=== PATIENT | male | born 1965 | race Caucasian/White ===

== ENCOUNTER 2019-03-06 10:51 | Emergency (ER) | payer BC ==
[2019-03-06 10:57] VITALS: BP 131/85; PULSE 70
[2019-03-06] MEDS ORDERED: Sodium Chloride 0.9% 1,000 ML IV ONE (11:47)
[2019-03-06] MEDS ORDERED: Sodium Chloride 0.9% 10 ML Syringe FLUSH PRN (11:47)
--- NOTE | 2019-03-06 11:53 | EDM.PDOC ---
ED HPI GENERAL MEDICAL PROBLEM - General Chief Complaint: Neuro Symptoms/Deficits Stated Complaint: DIZZINESS/L SIDE FACIAL DROOP Time Seen by Provider: 03/06/19 11:31 Source of Information: Reports: Patient History Limitations: Reports: No Limitations - History of Present Illness INITIAL COMMENTS - FREE TEXT/NARRATIVE: Patient is a 53-year-old male with concerns of intermittent gait abnormalities. He states with walking at times he'll feels off balance and has to catch himself against the wall. He denies any sensation of the room spinning. This has been going on for the past 3 months. He is under chronic pain management for neck and back pain. He has in total had 12 surgeries to his back and also to to his cervical spine. He was previously on morphine, oxycodone, and Valium. They changed to fentanyl patch and continues to take oxycodone and Valium. states she noticed his left eye was little more droopy over the past 1.5 weeks. This has resolved. There is no facial droop associated with this. Patient has had at no time complained of any weakness to his upper or lower extremities, foot drop, slurred speech, and tongue deviation, or vision loss. He does have a history of cervical fusion 2 and notes due to this wrist surgeries has some difficulty with swallowing at times. He has lost approximately 60 pounds over the last 4 months due to stress at work. They have not changed his medication dosages with the weight loss. Currently denies any headache, vision changes, chest pain, short of breath, fever, cough, abdominal pain, nausea vomiting, diarrhea, bloody stools, dark tarry stools, dysuria, increased edema to lower extremities, PND, orthopnea, and/or any additional complaints. Patient's been evaluated at the [facility] 3 weeks ago with blood work obtained with no concerning findings. Patient does smoke. Has a history of hypercholesteremia as well as seasonal allergies. - Related Data Allergies Allergy/AdvReac Type Severity Reaction Status Date / Time No Known Allergies Allergy Verified 03/06/19 10:57 Home Meds: Home Meds Fluticasone Propionate [Flonase] 1 spray NASBOTH ASDIRECTED 01/19/15 [History] Pill For Enlarged Prostate 0 mg PO DAILY 01/19/15 [History] Simvastatin [Zocor] 0 mg PO DAILY 01/19/15 [History] oxyCODONE ER [OxyCONTIN] 30 mg PO BEDTIME PRN 01/19/15 [History] Diazepam [Valium] 10 mg PO BEDTIME 03/06/19 [History] fentaNYL [Fentanyl] 1 each TD ASDIRECTED 03/06/19 [History] Past Medical History Cardiovascular History: Reports: High Cholesterol Musculoskeletal History: Reports: Back Pain, Chronic Other Dermatologic History: "skin cancer of nose" - Past Surgical History Other Neurological Surgeries/Procedures: "multiple back surgeries". reports last surgery was last spring with anterior-posterior fusion. previous surgery for removal of hardware for infection Social & Family History - Tobacco Use Smoking Status *Q: Current Every Day Smoker Years of Tobacco use: 45 Packs/Tins Daily: 0.5 - Recreational Drug Use Recreational Drug Use: No ED ROS GENERAL - Review of Systems Review Of Systems: See Below Constitutional: Reports: Decreased Appetite. Denies: Fever, Chills, Malaise, Weakness, Fatigue HEENT: Reports: Vertigo. Denies: Ear Discharge, Ear Pain, Eye Discharge, Eye Pain, Hearing Loss, Rhinitis, Sinus Problem, Throat Pain, Throat Swelling, Vision Change Respiratory: Denies: Shortness of Breath, Wheezing, Pleuritic Chest Pain, Cough , Sputum, Hemoptysis Cardiovascular: Reports: Lightheadedness. Denies: Chest Pain, Blood Pressure Problem, Claudication, Dyspnea on Exertion, Edema, Orthopnea, Palpitations, PND , Syncope GI/Abdominal: Reports: Decreased Appetite, Difficulty Swallowing. Denies: Abdominal Pain, Anorexia, Black Stool, Bloody Stool, Constipation, Diarrhea, Distension, Flatus, Hematemesis, Hematochezia, Melena, Nausea, Vomiting : Reports: No Symptoms Musculoskeletal: Reports: Neck Pain (Chronic no change), Back Pain (Chronic no change) Skin: Reports: No Symptoms Neurological: Reports: No Symptoms, Dizziness (Intermittent), Difficulty Walking (Intermittent balance issues very infrequent). Denies: Confusion, Headache, Numbness, Paresthesia, Pre-Existing Deficit, Seizure, Syncope, Tingling, Tremors, Trouble Speaking, Weakness, Change in Speech, Gait Disturbance Psychiatric: Reports: No Symptoms ED EXAM, NEURO - Physical Exam Exam: See Below Exam Limited By: No Limitations General Appearance: Alert, WD/WN, No Apparent Distress Eye Exam: Bilateral Eye: EOMI, Normal Inspection, Nystagmus (None noted), PERRL , Vision Changes (None stated) Ears: Normal External Exam, Normal Canal, Hearing Grossly Normal, Normal TMs Nose: Normal Inspection, Normal Mucosa, No Blood Throat/Mouth: Normal Inspection, Normal Oropharynx, Normal Voice, No Airway Compromise, Other (No tongue deviation) Head Exam: Atraumatic, Normocephalic Neck: Normal Inspection, Supple, Non-Tender, Full Range of Motion. No: Carotid Bruit, Lymphadenopathy (L), Lymphadenopathy (R) Respiratory/Chest: No Respiratory Distress, Lungs Clear, Normal Breath Sounds, No Accessory Muscle Use, Chest Non-Tender Cardiovascular: Normal Peripheral Pulses, Regular Rate, Rhythm, No Murmur GI/Abdominal: Normal Bowel Sounds, Soft, Non-Tender, No Organomegaly, No Distention Neurological: Alert, Normal Mood/Affect, Normal Dorsiflexion, CN II-XII Intact, Normal Plantar Flexion, Normal Gait, No Motor/Sensory Deficits, Oriented x 3, Other (No facial droop, slurred speech, tongue deviation, weakness discrepancy as to the upper and lower extremities, sensory motor deficits, or any other concerning findings. Finger-nose, rapid alternating movements are intact.) Back Exam: Normal Inspection Extremities: Normal Inspection, Normal Range of Motion, Non-Tender, No Pedal Edema, Normal Capillary Refill Psychiatric: Normal Affect, Normal Mood Skin Exam: Warm, Dry, Intact, Normal Color, No Rash Course - Vital Signs Last Recorded V/S: Last Vital Signs Temp 97.8 F 03/06/19 10:55 Pulse 70 03/06/19 10:55 Resp 16 03/06/19 10:55 BP 131/85 03/06/19 10:55 Pulse Ox 99 03/06/19 10:55 - Orders/Labs/Meds Labs: Laboratory Tests 03/06/19 03/06/19 Range/Units 12:00 12:00 WBC 11.18 H (4.23-9.07) K/mm3 RBC 5.08 (4.63-6.08) M/mm3 Hgb 16.2 (13.7-17.5) gm/L Hct 47.7 (40.1-51.0) % MCV 93.9 H (79.0-92.2) fl MCH 31.9 (25.7-32.2) pg MCHC 34.0 (32.2-35.5) g/dl RDW Std Deviation 46.8 H (35.1-43.9) fL Plt Count 297 (163-337) K/mm3 MPV 9.3 L (9.4-12.3) fl Neutrophils % (Manual) 59 (40-60) % Band Neutrophils % 1 (0-10) % Lymphocytes % (Manual) 30 (20-40) % Atypical Lymphs % 0 % Monocytes % (Manual) 8 (2-10) % Eosinophils % (Manual) 2 (0.8-7.0) % Basophils % (Manual) 0 L (0.2-1.2) Platelet Estimate Adequate RBC Morph Comment Normal Sodium 140 (136-145) mEq/L Potassium 3.6 (3.5-5.1) mEq/L Chloride 105 (98-107) mEq/L Carbon Dioxide 29 (21-32) mEq/L Anion Gap 9.6 (5-15) BUN 14 (7-18) mg/dL Creatinine 1.0 (0.7-1.3) mg/dL Est Cr Clr Drug Dosing 110.62 mL/min Estimated GFR (MDRD) > 60 (>60) mL/min BUN/Creatinine Ratio 14.0 (14-18) Glucose 96 (74-106) mg/dL Calcium 9.6 (8.5-10.1) mg/dL Total Bilirubin 0.4 (0.2-1.0) mg/dL AST 17 (15-37) U/L ALT 33 (16-63) U/L Alkaline Phosphatase 94 (46-116) U/L Troponin I < 0.017 (0.00-0.056) ng/mL Total Protein 7.4 (6.4-8.2) g/dl Albumin 3.8 (3.4-5.0) g/dl Globulin 3.6 gm/dL Albumin/Globulin Ratio 1.1 (1-2) TSH 3rd Generation 1.430 (0.358-3.74) uIU/mL Meds: Medications Discontinued Medications Generic Name Dose Route Start Last Admin Trade Name Freq PRN Reason Stop Dose Admin Sodium Chloride 1,000 mls @ 250 mls/hr 03/06/19 11:47 03/06/19 12:01 Normal Saline IV 03/06/19 15:46 250 mls/hr ONETIME ONE Administration Sodium Chloride 10 ml 03/06/19 11:47 03/06/19 12:01 Saline Flush FLUSH 10 ml ASDIRECTED PRN Administration Keep Vein Open - Re-Assessments/Exams Free Text/Narrative Re-Assessment/Exam: On exam patient's vital signs are stable. He has no facial droop, slurred speech , tongue deviation, weakness discrepancy to the upper and lower extremities. Finger-nose intact, Romberg intact, and gait is normal. He has no drooping to the eye. Patient is concerned about this intermittent sensation of feeling off balance. This has been going on for the past few months. He suspects maybe 3 months. This is when they changed his chronic pain med to fentanyl patch. They discontinued his morphine tabs. He continues take Valium and oxycodone. Unclear if any worsening symptoms/onset related with application of new patch. states she noticed his left eye was little more droopy over the past 1.5 weeks. This has resolved. There is no facial droop associated with this. Patient has had at no time complained of any weakness to his upper or lower extremities, foot drop, slurred speech, and deviation, or vision loss. He does have a history of cervical fusion 2 and notes due to this wrist surgeries has some difficulty with swallowing at times. He has lost approximately 60 pounds over the last 4 months due to stress at work. They have not changed his medication dosages with the weight loss. Currently denies any headache, vision changes, chest pain, shortness of breath, fever, cough, abdominal pain, nausea vomiting, diarrhea, bloody stools, dark tarry stools, dysuria, increased edema to lower extremities, PND, orthopnea, and/or any additional complaints. IV will be established with an S2 50 mL/h. Initial labs and studies will include : CBC, chem 14, troponin, TSH, UA, head CT without contrast, orthostatic vital signs, and EKG. EKG: Sinus rhythm at a rate of [address] head impression: Nothing acute is appreciated on noncontrast head CT exam. 03/06/19 12:58 Labs reviewed: White blood cell count 11.18, hemoglobin normal at 16.2, platelet count 297, chem 14 essentially normal. Troponin within normal limits. TSH within normal limits. Orthostatic vital signs have not been obtained yet. Orthostatic vital signs have not been obtained. Patient is sitting upright in the bed and has no symptoms. I have discussed the lab results, EKG, and CT head results. I will have patient follow up with primary care provider for further evaluation and testing in the next 3-5 days. Echocardiogram and maybe MRI may be obtained. I do not believe patient's having TIA-like symptoms. I think this is all related to his recent weight loss due to stress and the addition of fentanyl patch and continuing taking Valium and oxycodone. Patient is aware of this and also agrees. Return precautions were discussed with the patient. He had no further questions or concerns and agreed with plan. Departure - Departure Time of Disposition: 13:51 Disposition: Home, Self-Care 01 Condition: Good Clinical Impression: Abnormality of gait, Narcotic dependence, Episode of dizziness Chronic pain Qualifiers: Chronic pain type: other chronic pain Qualified Code(s): G89.29 - Other chronic pain - Discharge Information Instructions: Opioid Pain Medicine Information, Dizziness, [id number] Referrals: PCP,Not In Area [Primary Care Provider] - Forms: ED Department Discharge, ED Return to Work/School Form Additional Instructions: As discussed EKG, lab work, and head CT were essentially normal. I have elected to place you on a 48 hour Holter monitor to evaluate for any abnormalities with your heart rhythm. Please see your PCP in the next 3-5 days for reevaluation. In addition I do believe this is more likely related to the addition of fentanyl patch for pain management and continuation of valium and also Percocet. I think symptoms have compounded with your recent weight loss due to your stress. I do believe further evaluation for stress is appropriate and PCP can facilitate this. Please push the fluids. Eat a balanced meals. Return to the ED for any new or worsening symptoms.
--- NOTE | 2019-03-06 12:44 | CT ---
Head CT Technique: Multiple axial sections through the brain were obtained. Intravenous contrast was not utilized. Comparison: No prior intracranial imaging is available. Findings: Ventricles along with basal cisterns and sulci over the convexities are within normal limits for the patient's age. No abnormal parenchymal densities are seen. No evidence of intracranial hemorrhage. No midline shift or mass effect is seen. Bone window settings were reviewed which show the visualized mastoid and paranasal sinuses to appear clear. No acute calvarial abnormality is appreciated. Impression: 1. Nothing acute is appreciated on noncontrast head CT exam. Diagnostic code #1
== END 2019-03-06 14:09 | disposition home or self-care (01) ==
LOC: JD.ED 10:51
DX: R26.9 Unspecified abnormalities of gait and mobility (principal); R42 Dizziness and giddiness; F11.20 Opioid dependence, uncomplicated; M54.2 Cervicalgia; M54.9 Dorsalgia, unspecified; E78.00 Pure hypercholesterolemia, unspecified; F17.210 Nicotine dependence, cigarettes, uncomplicated; Z79.899 Other long term (current) drug therapy
CPT/HCPCS: 36415; 70450; 80053; 84443; 84484; 85007; 85027; 93005; 93225; 93226; 96360; 99284; J7040; 93010

== ENCOUNTER 2019-07-03 10:51 | Emergency (ER) | payer BC ==
[2019-07-03 11:30] VITALS: BP 114/79; PULSE 75
--- NOTE | 2019-07-03 11:56 | EDM.PDOC ---
ED HPI GENERAL MEDICAL PROBLEM - General Chief Complaint: Upper Extremity Injury/Pain Stated Complaint: RIGHT SHOULDER PAIN Time Seen by Provider: 07/03/19 11:25 Source of Information: Reports: Patient, RN Notes Reviewed History Limitations: Reports: No Limitations - History of Present Illness INITIAL COMMENTS - FREE TEXT/NARRATIVE: Patient is a 54-year-old male who presents to the ED for evaluation of right shoulder pain. He notes that on , 06/29/2019, he was lifting something heavy, when he heard and felt a pop in his right shoulder, he states he felt immediate pain after this. Patient notes that his pain in his upper arm is more of a stabbing sharp type pain in nature. He denies any numbness or tingling distal to the injury. He states that the pain feels similar to when he tore his rotator cuff in his left shoulder. Patient notes no prior deficit to the right shoulder. He does state that he has a pain doctor in [place] and he is on a pain contract. He states that the pain in the right shoulder does shoot up to the neck at times, he has not sought treatment for evaluation for this injury. He notes that he has seen Danitza Alvarez in the [facility] (formerly [facility] for a primary care provider. As far as his pain contract goes he is on 100 mcg fentanyl patch, 15 mg oxycodone, and takes Valium for sleep. He states that this pain medication combination does not really help much for the pain, he also states he is been icing the shoulder for pain relief. Treatments [employer]: Reports: Other (see below) Other Treatments [employer]: pain medcation - see triage note Right Shoulder Pain Score (Numeric/FACES): 9 - Related Data Allergies Allergy/AdvReac Type Severity Reaction Status Date / Time No Known Allergies Allergy Verified 07/03/19 11:30 Home Meds: Home Meds oxyCODONE ER [OxyCONTIN] 15 mg PO Q4HR PRN 01/19/15 [History] Diazepam [Valium] 10 mg PO BID PRN 03/06/19 [History] fentaNYL [Fentanyl] 100 mcg TD ASDIRECTED 03/06/19 [History] atorvaSTATin [Lipitor] 10 mg PO DAILY 07/03/19 [History] Past Medical History Cardiovascular History: Reports: High Cholesterol Musculoskeletal History: Reports: Back Pain, Chronic Other Dermatologic History: "skin cancer of nose" - Past Surgical History Other Neurological Surgeries/Procedures: "multiple back surgeries". reports last surgery was last spring with anterior-posterior fusion. previous surgery for removal of hardware for infection. 10 failed back surgeries, 2 failed neck surgeries Social & Family History - Tobacco Use Smoking Status *Q: Current Every Day Smoker Years of Tobacco use: 40 Packs/Tins Daily: 0.1 - Caffeine Use Caffeine Use: Reports: Coffee - Recreational Drug Use Recreational Drug Use: No Review of Systems - Review of Systems Review Of Systems: Comprehensive ROS is negative, except as noted in HPI. Musculoskeletal: Reports: Shoulder Pain (R shoulder pain). Denies: Joint Swelling Neurological: Denies: Numbness, Tingling ED EXAM, GENERAL - Physical Exam Exam: See Below Exam Limited By: No Limitations General Appearance: Alert, WD/WN, No Apparent Distress Eye Exam: Bilateral Eye: EOMI, Normal Inspection, PERRL Throat/Mouth: Normal Inspection, Normal Lips, Normal Teeth, Normal Gums, Normal Oropharynx, Normal Voice, No Airway Compromise Head: Atraumatic, Normocephalic Neck: Normal Inspection Respiratory/Chest: No Respiratory Distress, Lungs Clear, Normal Breath Sounds, No Accessory Muscle Use, Chest Non-Tender Cardiovascular: Normal Peripheral Pulses, Regular Rate, Rhythm, No Murmur Peripheral Pulses: 3+: Radial (L), Radial (R) GI/Abdominal: Normal Bowel Sounds, Soft, Non-Tender, No Distention, No Mass Extremities: Normal Inspection, Normal Capillary Refill, Limited Range of Motion (R shoulder: has about half ROM in all movements d/t pain.). No: Joint Swelling Neurological: Alert, Oriented, Normal Cognition, No Motor/Sensory Deficits Psychiatric: Normal Affect, Normal Mood Skin Exam: Warm, Dry, Intact, Normal Color, No Rash Course - Vital Signs Last Recorded V/S: Last Vital Signs Temp 98.6 F 07/03/19 11:24 Pulse 75 07/03/19 11:24 Resp 18 07/03/19 11:24 BP 114/79 07/03/19 11:24 Pulse Ox 98 07/03/19 11:24 - Orders/Labs/Meds Orders: Active Orders 24 hr Category Date Time Status Shoulder Comp Rt [CR] Stat Exams 07/03/19 11:45 Taken - Re-Assessments/Exams Free Text/Narrative Re-Assessment/Exam: 07/03/19 11:52 Patient presents to the ED for evaluation of a right shoulder injury. I will order a shoulder x-ray to evaluate for any bony abnormality that may have happened while he was lifting the heavy object, and provide the patient with an outpatient MRI order so he can follow-up with his regular doctor for further management. At this time he was not requesting anything for pain medication, he states he has everything at home, he was wanting to be evaluated for Imaging purposes. 07/03/19 12:14 X-ray is done, and demonstrates no focal bony abnormalities or acute fractures. This was read by myself and Dr. Huynh. Official radiology read is pending however. At this time, I will send the patient home with the outpatient MRI ordered and have him follow general conservative management. Departure - Departure Time of Disposition: 12:15 Disposition: Home, Self-Care 01 Condition: Fair Clinical Impression: Right shoulder pain Qualifiers: Chronicity: acute Qualified Code(s): M25.511 - Pain in right shoulder - Discharge Information *PRESCRIPTION DRUG MONITORING PROGRAM REVIEWED*: No *COPY OF PRESCRIPTION DRUG MONITORING REPORT IN PATIENT JOVANNY: No Instructions: Shoulder Pain, [id number] Referrals: PCP,None [Primary Care Provider] - Forms: ED Department Discharge Additional Instructions: You have been evaluated in the ED for your Right shoulder pain. Your x-ray demonstrated no fracture or acute bony abnormality of the right shoulder. Please use ice/heat as tolerated to the affected area. Please try to elevate the affected area to relieve swelling. You may take Tylenol 500 mg or ibuprofen 600mg q6 hrs for pain relief. Please do so until you have a tolerable level of pain with activity. Do not exceed 4000mg Tylenol or 3200mg ibuprofen in a 24 hour time period. Recommend you try taking some ibuprofen even in combination with the other medications you have been taking to help relieve inflammation of the shoulder. You were given an outpatient order for an MRI for further evaluation of your right shoulder. Our radiology department will call to schedule you with this appointment. If you have not heard from them in 48 hours, recommend you call [phone] and ask for radiology. You will need to follow-up with your primary care provider for results of this MRI. Please try to schedule an appointment within 1 week of your MRI with your primary care provider for follow -up. Please return to ED if your symptoms should change or worsen. Sepsis Event Note - Evaluation Sepsis Screening Result: No Definite Risk - Focused Exam Vital Signs: Vital Signs Temp Pulse Resp BP Pulse Ox 07/03/19 11:24 98.6 F 75 18 114/79 98 Date Exam was Performed: 07/03/19 Time Exam was Performed: 12:15 - My Orders Last 24 Hours: My Active Orders 07/03/19 11:45 Shoulder Comp Rt [CR] Stat - Assessment/Plan Last 24 Hours: My Active Orders 07/03/19 11:45 Shoulder Comp Rt [CR] Stat
--- NOTE | 2019-07-03 13:03 | CR ---
Right shoulder: Three views of the right shoulder were obtained. Comparison: No prior right shoulder imaging. Slight degenerative change is noted within the acromioclavicular joint. Glenohumeral joint is normal. No abnormal soft tissue calcifications are seen, no old fracture or other bony abnormality is noted. Azygos lobe is noted within the right upper lung which is felt to be a incidental note. Impression: 1. Slight degenerative change within the acromioclavicular joint. 2. Right shoulder study is otherwise unremarkable. Diagnostic code #2 This report was dictated in [place] Standard Time
== END 2019-07-03 12:33 | disposition home or self-care (01) ==
LOC: JD.ED 10:51
DX: M25.511 Pain in right shoulder (principal); F17.210 Nicotine dependence, cigarettes, uncomplicated; E78.00 Pure hypercholesterolemia, unspecified; Z79.899 Other long term (current) drug therapy; X50.0XXA Overexertion from strenuous movement or load, initial encounter
CPT/HCPCS: 73030-26-RT; 73030-RT; 99282; 99283-25

== ENCOUNTER 2019-12-30 13:08 | Emergency (ER) | payer BC ==
[2019-12-30 13:19] VITALS: BP 127/73; PULSE 50
[2019-12-30] MEDS ORDERED: Sodium Chloride 0.9% 10 ML Syringe FLUSH PRN (14:03)
[2019-12-30] MEDS ORDERED: Ondansetron 4 MG/2 ML SDV IVPUSH ONE (14:03)
[2019-12-30] MEDS ORDERED: Famotidine 20 MG/2 ML SDV IVPUSH ONE (14:03)
--- NOTE | 2019-12-30 14:05 | EDM.PDOC ---
ED HPI GENERAL MEDICAL PROBLEM - General Chief Complaint: Gastrointestinal Problem Stated Complaint: VOMITING GREEN BILE FOR 12 HOURS Time Seen by Provider: 12/30/19 13:19 Source of Information: Reports: Patient, Family (), RN Notes Reviewed - History of Present Illness INITIAL COMMENTS - FREE TEXT/NARRATIVE: 54 yr old male has not felt well for 2 weeks, generalized weakness, dizziness. Onset of diarrhea and vomiting last evening. Continues to feel more ill today. Epigastric Pain Score (Numeric/FACES): 8 - Related Data Allergies Allergy/AdvReac Type Severity Reaction Status Date / Time No Known Allergies Allergy Verified 12/30/19 13:19 Home Meds: Home Meds oxyCODONE ER [OxyCONTIN] 20 mg PO Q4HR PRN 01/19/15 [History] diazePAM [Valium] 10 mg PO BID PRN 03/06/19 [History] atorvaSTATin [Lipitor] 10 mg PO DAILY 07/03/19 [History] Morphine [MS Contin] 100 mg PO ASDIRECTED 12/30/19 [History] Ondansetron [Zofran ODT] 4 mg PO Q8HR PRN #7 tab.dis 12/30/19 [Rx] Past Medical History Cardiovascular History: Reports: High Cholesterol Musculoskeletal History: Reports: Back Pain, Chronic Other Dermatologic History: "skin cancer of nose" - Past Surgical History Other Neurological Surgeries/Procedures: "multiple back surgeries". reports last surgery was last spring with anterior-posterior fusion. previous surgery for removal of hardware for infection. 10 failed back surgeries, 2 failed neck surgeries Social & Family History - Tobacco Use Smoking Status *Q: Current Every Day Smoker Years of Tobacco use: 20 Packs/Tins Daily: 0.5 - Caffeine Use Caffeine Use: Reports: None - Recreational Drug Use Recreational Drug Use: No ED ROS GENERAL - Review of Systems Review Of Systems: See Below Constitutional: Denies: Fever, Chills HEENT: Reports: No Symptoms Respiratory: Denies: Shortness of Breath, Cough Cardiovascular: Denies: Chest Pain GI/Abdominal: Reports: Abdominal Pain, Diarrhea, Nausea, Vomiting. Denies: Hematochezia, Melena Musculoskeletal: Denies: Back Pain Neurological: Reports: Dizziness ED EXAM, GI/ABD - Physical Exam Exam: See Below General Appearance: Alert, Mild Distress Eyes: Bilateral: Normal Appearance Head: Atraumatic. No: Facial Swelling Neck: Supple Respiratory/Chest: No Respiratory Distress, Lungs Clear Cardiovascular: Bradycardia GI/Abdominal Exam: Soft, Tender (mild diffuse tendernes greater upper abd than lower abd) Back Exam: No: CVA Tenderness (L), CVA Tenderness (R) Extremities: Normal Inspection, Normal Range of Motion Skin Exam: Warm, Dry, Normal Color, No Rash Course - Vital Signs Last Recorded V/S: Last Vital Signs Temp 97.4 F 12/30/19 13:17 Pulse 50 L 12/30/19 13:17 Resp 16 12/30/19 13:17 BP 127/73 12/30/19 13:17 Pulse Ox 99 12/30/19 13:17 - Orders/Labs/Meds Labs: Laboratory Tests 12/30/19 12/30/19 Range/Units 14:35 14:35 WBC 13.04 H (4.23-9.07) K/mm3 RBC 5.43 (4.63-6.08) M/mm3 Hgb 17.2 (13.7-17.5) gm/dl Hct 50.8 (40.1-51.0) % MCV 93.6 H (79.0-92.2) fl MCH 31.7 (25.7-32.2) pg MCHC 33.9 (32.2-35.5) g/dl RDW Std Deviation 47.9 H (35.1-43.9) fL Plt Count 311 (163-337) K/mm3 MPV 9.9 (9.4-12.3) fl Neut % (Auto) 79.5 H (34.0-67.9) % Lymph % (Auto) 12.8 L (21.8-53.1) % [place] % (Auto) 6.9 (5.3-12.2) % Eos % (Auto) 0.1 L (0.8-7.0) Baso % (Auto) 0.2 (0.1-1.2) % Neut # (Auto) 10.38 H (1.78-5.38) K/mm3 Lymph # (Auto) 1.67 (1.32-3.57) K/mm3 [place] # (Auto) 0.90 H (0.30-0.82) K/mm3 Eos # (Auto) 0.01 L (0.04-0.54) K/mm3 Baso # (Auto) 0.02 (0.01-0.08) K/mm3 Manual Slide Review Normal smear Sodium 140 (136-145) mEq/L Potassium 3.8 (3.5-5.1) mEq/L Chloride 105 (98-107) mEq/L Carbon Dioxide 23 (21-32) mEq/L Anion Gap 15.8 H (5-15) BUN 12 (7-18) mg/dL Creatinine 1.0 (0.7-1.3) mg/dL Est Cr Clr Drug Dosing 109.32 mL/min Estimated GFR (MDRD) > 60 (>60) mL/min BUN/Creatinine Ratio 12.0 L (14-18) Glucose 102 (74-106) mg/dL Calcium 9.2 (8.5-10.1) mg/dL Total Bilirubin 0.5 (0.2-1.0) mg/dL AST 17 (15-37) U/L ALT 25 (16-63) U/L Alkaline Phosphatase 93 (46-116) U/L Total Protein 7.0 (6.4-8.2) g/dl Albumin 3.5 (3.4-5.0) g/dl Globulin 3.5 gm/dL Albumin/Globulin Ratio 1.0 (1-2) Lipase 75 (73-393) U/L Meds: Medications Discontinued Medications Generic Name Dose Route Start Last Admin Trade Name Freq PRN Reason Stop Dose Admin Famotidine 20 mg 12/30/19 14:03 12/30/19 14:44 Pepcid IVPUSH 12/30/19 14:04 20 mg ONETIME ONE Administration Sodium Chloride 1,000 mls @ 999 mls/hr 12/30/19 14:15 12/30/19 14:44 Normal Saline IV 999 mls/hr ONETIME ELSI Administration Metoclopramide HCl 10 mg 12/30/19 15:24 12/30/19 15:43 Reglan IVPUSH 12/30/19 15:25 10 mg ONETIME ONE Administration Ondansetron HCl 4 mg 12/30/19 14:03 12/30/19 14:46 Zofran IVPUSH 12/30/19 14:04 4 mg ONETIME ONE Administration Sodium Chloride 10 ml 12/30/19 14:03 12/30/19 14:46 Saline Flush FLUSH 10 ml ASDIRECTED PRN Administration Keep Vein Open - Re-Assessments/Exams Free Text/Narrative Re-Assessment/Exam: 01/04/20 08:17 WBC was mildly elevated, labs otherwise relatively OK, have treated with 1 liter NS, zofran, feeling better at time of discharge. Departure - Departure Time of Disposition: 17:25 Disposition: Home, Self-Care 01 Condition: Fair Clinical Impression: Vomiting Diarrhea Qualifiers: Diarrhea type: unspecified type Qualified Code(s): R19.7 - Diarrhea, unspecified - Discharge Information Prescriptions: Ondansetron [Zofran ODT] 4 mg PO Q8HR PRN #7 tab.dis PRN Reason: Nausea/Vomiting Instructions: Nausea and Vomiting, Adult, [id number], Diarrhea, Adult, [id number] Referrals: Danitza Alvarez SKI TOPPER [Primary Care Provider] - Forms: ED Department Discharge Additional Instructions: Clear liquids until tomorrow afternoon, than careful bland diet as tolerated. Probiotic twice daily, zofran if needed for further nausea or vomiting. Prescription has been sent electronically to [facility]. Follow up clinic if not much better by Wednesday as expected. Return to ED if symptoms worsening in any way. Sepsis Event Note (ED) - Evaluation Sepsis Screening Result: No Definite Risk
[2019-12-30] MEDS ORDERED: Sodium Chloride 0.9% 1,000 ML IV SCH (14:15)
[2019-12-30] MEDS ORDERED: Metoclopramide 10 MG/2 ML SDV IVPUSH ONE (15:24)
--- NOTE | 2019-12-31 11:02 | CR ---
Abdomen: Supine and upright views of the abdomen were obtained. Comparison: No prior abdominal x-rays available. Prior lumbar spine surgery is noted. Mild degenerative change is otherwise scattered throughout the spine. Joint space narrowing is noted within the right hip. Bowel gas pattern appears normal. No abnormal calcifications or soft tissue abnormality is appreciated. No free air is seen. Impression: 1. Chronic bony findings as noted above. 2. Nothing acute is appreciated on 2 view abdominal x-ray. Diagnostic code #2 This report was dictated in MDT
== END 2019-12-30 17:40 | disposition home or self-care (01) ==
LOC: JD.ED 13:08
DX: R11.10 Vomiting, unspecified (principal); R19.7 Diarrhea, unspecified; R42 Dizziness and giddiness; R53.1 Weakness; E78.00 Pure hypercholesterolemia, unspecified; F17.210 Nicotine dependence, cigarettes, uncomplicated; Z79.899 Other long term (current) drug therapy
CPT/HCPCS: 36415; 74019; 80053; 83690; 85025; 96361; 96374; 96375; 99284; J2405; J2765; J3490; J7030; 99283

== ENCOUNTER 2020-05-30 15:52 | Emergency (ER) | payer BC ==
[2020-05-30] MEDS ORDERED: Sodium Chloride 0.9% 10 ML Syringe FLUSH PRN (16:11)
[2020-05-30] MEDS: Sodium Chloride 0.9% 1,000 ML IV SCH ×2 (16:19→20:16)
[2020-05-30 17:39] VITALS: BP 121/67; PULSE 57
[2020-05-30] MEDS ORDERED: Metoclopramide 10 MG/2 ML SDV IVPUSH ONE (17:53)
[2020-05-30] MEDS ORDERED: Iopamidol 612 MG/ML 50 ML SDV IVPUSH ONE (18:31)
[2020-05-30] MEDS ORDERED: Iopamidol 755 Mg/ML 100 ML Bottle IVPUSH ONE (18:31)
[2020-05-30] MEDS ORDERED: Sodium Chloride 0.9% 10 ML Syringe FLUSH STA (18:31)
--- NOTE | 2020-05-30 18:35 | EDM.PDOC ---
<Vishnu Wang Vanessa - Last Filed: 05/31/20 16:21> ED HPI GENERAL MEDICAL PROBLEM - General Chief Complaint: Gastrointestinal Problem Stated Complaint: [facility] Time Seen by Provider: 05/30/20 16:04 Source of Information: Reports: Patient, RN Notes Reviewed - History of Present Illness INITIAL COMMENTS - FREE TEXT/NARRATIVE: 55 yr old male comes here by [facility] with sx of chills, nausea and vomiting. He went to the [facility], he was diaphoretic and vomiting so they have referred him here. On arrival he complains of nausea, chills. Denies current chest or abd pain. Not very talkative, does not give a reasonable hx. No recent cough. States he felt fine this past morning. He is on oxycontin and percocet for chronic pain. Treatments SPECIAL EFFECTS ARTIST: Reports: Other (see below) Other Treatments SPECIAL EFFECTS ARTIST: 4mg IV zofran, 324mg asa po - Related Data Allergies Allergy/AdvReac Type Severity Reaction Status Date / Time No Known Allergies Allergy Verified 05/30/20 16:08 Home Meds: Home Meds oxyCODONE ER [OxyCONTIN] 20 mg PO Q4HR PRN 01/19/15 [History] diazePAM [Valium] 10 mg PO BID PRN 03/06/19 [History] atorvaSTATin [Lipitor] 10 mg PO DAILY 07/03/19 [History] Morphine [MS Contin] 100 mg PO ASDIRECTED 12/30/19 [History] Ondansetron [Zofran ODT] 4 mg PO Q8HR PRN #7 tab.dis 12/30/19 [Rx] Ondansetron [Zofran ODT] 4 mg PO Q6H PRN #10 tab.dis 05/30/20 [Rx] levoFLOXacin [Levaquin] 500 mg PO Q48H #10 tab 05/30/20 [Rx] metroNIDAZOLE [Flagyl] 500 mg PO Q8H #20 tab 05/30/20 [Rx] Past Medical History Cardiovascular History: Reports: High Cholesterol Musculoskeletal History: Reports: Back Pain, Chronic Other Dermatologic History: "skin cancer of nose" - Past Surgical History Other Neurological Surgeries/Procedures: "multiple back surgeries". reports last surgery was last spring with anterior-posterior fusion. previous surgery for removal of hardware for infection. 10 failed back surgeries, 2 failed neck surgeries Social & Family History - Tobacco Use Tobacco Use Status *Q: Current Every Day Tobacco User Years of Tobacco use: 40 Packs/Tins Daily: 1 - Caffeine Use Caffeine Use: Reports: Coffee - Recreational Drug Use Recreational Drug Use: No ED ROS GENERAL - Review of Systems Review Of Systems: See Below Constitutional: Reports: Chills. Denies: Fever HEENT: Reports: No Symptoms Respiratory: Denies: Shortness of Breath Cardiovascular: Denies: Chest Pain GI/Abdominal: Reports: Abdominal Pain, Nausea, Vomiting : Reports: No Symptoms Musculoskeletal: Reports: Back Pain (chronic) Neurological: Reports: Dizziness. Denies: Headache, Numbness, Tingling ED EXAM, NEURO - Physical Exam Exam: See Below General Appearance: Alert, Mild Distress Eye Exam: Bilateral Eye: PERRL Head Exam: Atraumatic. No: Facial Swelling Neck: Supple Respiratory/Chest: No Respiratory Distress, Lungs Clear, Normal Breath Sounds Cardiovascular: Regular Rate, Rhythm GI/Abdominal: Soft, Tender (mild diffuse tenderness) Neurological: Alert, No Motor/Sensory Deficits Back Exam: No: CVA Tenderness (L), CVA Tenderness (R) Extremities: Normal Inspection, Normal Range of Motion Skin Exam: Warm, Dry, Normal Color Course - Re-Assessments/Exams Free Text/Narrative Re-Assessment/Exam: 05/30/20. 18:00. trop has come back neg. Flat and upright abd showed a lot of stool in the colon, no free air or air fluid levels. WBC has come back at 21,000. He still does have his appendix. His has mild to moderate diffuse abd tenderness. No guarding or rebound. CT abd and pelvis ordered with IV and oral contrast. It is change of shift. Will transfer care to Dr Gandhi. Departure - Departure Time of Disposition: 21:00 Disposition: Home, Self-Care 01 Condition: Fair Clinical Impression: Colitis - Discharge Information Prescriptions: metroNIDAZOLE [Flagyl] 500 mg PO Q8H #20 tab levoFLOXacin [Levaquin] 500 mg PO Q48H #10 tab Ondansetron [Zofran ODT] 4 mg PO Q6H PRN #10 tab.dis PRN Reason: Nausea/Vomiting Instructions: Colitis Referrals: Danitza Alvarez NP [Primary Care Provider] - Forms: ED Department Discharge Additional Instructions: Clear liquids until tomorrow afternoon. Than careful bland diet as tolerate. Zofran for further nausea or vomiting as needed. Levaquin 500 mg daily for 10 days. Flagyl 500 mg 3 times daily for 1 week. Doses due at 0600 hrs. tomorrow morning these prescriptions have been sent to [facility]. You have been given IV meds this evening. Start the oral meds tomorrow morning and take until gone. Mag citrate for constipation. Drink 1/3 to 1/2 bottle this evening. Drink !/3 to 1/2 bottle tomorrow morning if needed. Return to ED as needed if symptoms worsening in any way. Sepsis Event Note (ED) - Evaluation Sepsis Screening Result: No Definite Risk <Adam Gandhi - Last Filed: 05/31/20 19:51> Course - Vital Signs Last Recorded V/S: Last Vital Signs Temp 36.1 C 05/30/20 16:22 Pulse 57 L 05/30/20 17:37 Resp 16 05/30/20 17:37 BP 121/67 05/30/20 17:37 Pulse Ox 95 05/30/20 17:37 - Orders/Labs/Meds Labs: Laboratory Tests 05/30/20 05/30/20 05/30/20 Range/Units 16:35 16:35 16:35 WBC 21.39 H (4.23-9.07) K/mm3 RBC 4.90 (4.63-6.08) M/mm3 Hgb 15.8 (13.7-17.5) gm/dl Hct 47.0 (40.1-51.0) % MCV 95.9 H (79.0-92.2) fl MCH 32.2 (25.7-32.2) pg MCHC 33.6 (32.2-35.5) g/dl RDW Std Deviation 46.7 H (35.1-43.9) fL Plt Count 275 (163-337) K/mm3 MPV 9.5 (9.4-12.3) fl Neut % (Auto) 78.1 H (34.0-67.9) % Lymph % (Auto) 8.8 L (21.8-53.1) % [place] % (Auto) 11.0 (5.3-12.2) % Eos % (Auto) 1.6 (0.8-7.0) Baso % (Auto) 0.2 (0.1-1.2) % Neut # (Auto) 16.72 H (1.78-5.38) K/mm3 Lymph # (Auto) 1.88 (1.32-3.57) K/mm3 [place] # (Auto) 2.35 H (0.30-0.82) K/mm3 Eos # (Auto) 0.34 (0.04-0.54) K/mm3 Baso # (Auto) 0.04 (0.01-0.08) K/mm3 Manual Slide Review Abnormal smear Sodium 141 (136-145) mEq/L Potassium 3.2 L (3.5-5.1) mEq/L Chloride 103 (98-107) mEq/L Carbon Dioxide 23 (21-32) mEq/L Anion Gap 18.2 H (5-15) BUN 18 (7-18) mg/dL Creatinine 1.1 (0.7-1.3) mg/dL Est Cr Clr Drug Dosing 98.20 mL/min Estimated GFR (MDRD) > 60 (>60) mL/min BUN/Creatinine Ratio 16.4 (14-18) Glucose 94 (74-106) mg/dL Calcium 9.0 (8.5-10.1) mg/dL Magnesium (1.8-2.4) mg/dl Total Bilirubin 0.4 (0.2-1.0) mg/dL AST 18 (15-37) U/L ALT 25 (16-63) U/L Alkaline Phosphatase 81 (46-116) U/L Troponin I < 0.017 (0.00-0.056) ng/mL C-Reactive Protein 2.5 H* (<1.0) mg/dL Total Protein 7.1 (6.4-8.2) g/dl Albumin 3.9 (3.4-5.0) g/dl Globulin 3.2 gm/dL Albumin/Globulin Ratio 1.2 (1-2) Lipase 226 (73-393) U/L Urine Color (Yellow) Urine Appearance (Clear) Urine pH (5.0-8.0) Ur Specific [place] (1.005-1.030) Urine Protein (Negative) Urine Glucose (UA) (Negative) Urine Ketones (Negative) Urine Occult Blood (Negative) Urine Nitrite (Negative) Urine Bilirubin (Negative) Urine Urobilinogen (0.2-1.0) Ur Leukocyte Esterase (Negative) Urine RBC (0-5) /hpf Urine WBC (0-5) /hpf Ur Epithelial Cells (0-5) /hpf Urine Bacteria (FEW) /hpf Urine Mucus (FEW) /hpf Ethyl Alcohol 0.00 (0.00) gm% Ketones (0.0-0.3) mM SARS-CoV-2 RNA (NARA) (NEGATIVE) 05/30/20 05/30/20 05/30/20 Range/Units 16:35 16:35 18:55 WBC (4.23-9.07) K/mm3 RBC (4.63-6.08) M/mm3 Hgb (13.7-17.5) gm/dl Hct (40.1-51.0) % MCV (79.0-92.2) fl MCH (25.7-32.2) pg MCHC (32.2-35.5) g/dl RDW Std Deviation (35.1-43.9) fL Plt Count (163-337) K/mm3 MPV (9.4-12.3) fl Neut % (Auto) (34.0-67.9) % Lymph % (Auto) (21.8-53.1) % [place] % (Auto) (5.3-12.2) % Eos % (Auto) (0.8-7.0) Baso % (Auto) (0.1-1.2) % Neut # (Auto) (1.78-5.38) K/mm3 Lymph # (Auto) (1.32-3.57) K/mm3 [place] # (Auto) (0.30-0.82) K/mm3 Eos # (Auto) (0.04-0.54) K/mm3 Baso # (Auto) (0.01-0.08) K/mm3 Manual Slide Review Sodium (136-145) mEq/L Potassium (3.5-5.1) mEq/L Chloride (98-107) mEq/L Carbon Dioxide (21-32) mEq/L Anion Gap (5-15) BUN (7-18) mg/dL Creatinine (0.7-1.3) mg/dL Est Cr Clr Drug Dosing mL/min Estimated GFR (MDRD) (>60) mL/min BUN/Creatinine Ratio (14-18) Glucose (74-106) mg/dL Calcium (8.5-10.1) mg/dL Magnesium 1.8 (1.8-2.4) mg/dl Total Bilirubin (0.2-1.0) mg/dL AST (15-37) U/L ALT (16-63) U/L Alkaline Phosphatase (46-116) U/L Troponin I (0.00-0.056) ng/mL C-Reactive Protein (<1.0) mg/dL Total Protein (6.4-8.2) g/dl Albumin (3.4-5.0) g/dl Globulin gm/dL Albumin/Globulin Ratio (1-2) Lipase (73-393) U/L Urine Color (Yellow) Urine Appearance (Clear) Urine pH (5.0-8.0) Ur Specific [place] (1.005-1.030) Urine Protein (Negative) Urine Glucose (UA) (Negative) Urine Ketones (Negative) Urine Occult Blood (Negative) Urine Nitrite (Negative) Urine Bilirubin (Negative) Urine Urobilinogen (0.2-1.0) Ur Leukocyte Esterase (Negative) Urine RBC (0-5) /hpf Urine WBC (0-5) /hpf Ur Epithelial Cells (0-5) /hpf Urine Bacteria (FEW) /hpf Urine Mucus (FEW) /hpf Ethyl Alcohol (0.00) gm% Ketones 0.65 (0.0-0.3) mM SARS-CoV-2 RNA (NARA) Negative (NEGATIVE) 05/30/20 Range/Units 21:10 WBC (4.23-9.07) K/mm3 RBC (4.63-6.08) M/mm3 Hgb (13.7-17.5) gm/dl Hct (40.1-51.0) % MCV (79.0-92.2) fl MCH (25.7-32.2) pg MCHC (32.2-35.5) g/dl RDW Std Deviation (35.1-43.9) fL Plt Count (163-337) K/mm3 MPV (9.4-12.3) fl Neut % (Auto) (34.0-67.9) % Lymph % (Auto) (21.8-53.1) % [place] % (Auto) (5.3-12.2) % Eos % (Auto) (0.8-7.0) Baso % (Auto) (0.1-1.2) % Neut # (Auto) (1.78-5.38) K/mm3 Lymph # (Auto) (1.32-3.57) K/mm3 [place] # (Auto) (0.30-0.82) K/mm3 Eos # (Auto) (0.04-0.54) K/mm3 Baso # (Auto) (0.01-0.08) K/mm3 Manual Slide Review Sodium (136-145) mEq/L Potassium (3.5-5.1) mEq/L Chloride (98-107) mEq/L Carbon Dioxide (21-32) mEq/L Anion Gap (5-15) BUN (7-18) mg/dL Creatinine (0.7-1.3) mg/dL Est Cr Clr Drug Dosing mL/min Estimated GFR (MDRD) (>60) mL/min BUN/Creatinine Ratio (14-18) Glucose (74-106) mg/dL Calcium (8.5-10.1) mg/dL Magnesium (1.8-2.4) mg/dl Total Bilirubin (0.2-1.0) mg/dL AST (15-37) U/L ALT (16-63) U/L Alkaline Phosphatase (46-116) U/L Troponin I (0.00-0.056) ng/mL C-Reactive Protein (<1.0) mg/dL Total Protein (6.4-8.2) g/dl Albumin (3.4-5.0) g/dl Globulin gm/dL Albumin/Globulin Ratio (1-2) Lipase (73-393) U/L Urine Color Yellow (Yellow) Urine Appearance Clear (Clear) Urine pH 8.5 H (5.0-8.0) Ur Specific [place] 1.015 (1.005-1.030) Urine Protein Negative (Negative) Urine Glucose (UA) Negative (Negative) Urine Ketones 2+ H (Negative) Urine Occult Blood Negative (Negative) Urine Nitrite Negative (Negative) Urine Bilirubin Negative (Negative) Urine Urobilinogen 0.2 (0.2-1.0) Ur Leukocyte Esterase Negative (Negative) Urine RBC 0-5 (0-5) /hpf Urine WBC 0-5 (0-5) /hpf Ur Epithelial Cells 0-5 (0-5) /hpf Urine Bacteria Not seen (FEW) /hpf Urine Mucus Not seen (FEW) /hpf Ethyl Alcohol (0.00) gm% Ketones (0.0-0.3) mM SARS-CoV-2 RNA (NARA) (NEGATIVE) Meds: Medications Discontinued Medications Generic Name Dose Route Start Last Admin Trade Name Freq PRN Reason Stop Dose Admin Sodium Chloride 1,000 mls @ 999 mls/hr 05/30/20 16:15 05/30/20 20:16 Normal Saline IV 999 mls/hr ONETIME ELSI Administration Sodium Chloride 1,000 mls @ 999 mls/hr 05/30/20 20:00 Normal Saline IV ONETIME ELSI Metronidazole 500 mg/ Premix 100 mls @ 100 mls/hr 05/30/20 19:59 05/30/20 20:17 IV 05/30/20 20:58 100 mls/hr ONETIME ONE Administration Levofloxacin/Dextrose 750 mg/ 150 mls @ 100 mls/hr 05/30/20 20:02 05/30/20 20:16 Premix IV 05/30/20 21:31 100 mls/hr ONETIME ONE Administration Iopamidol 50 ml 05/30/20 18:31 05/30/20 18:49 Isovue-300 (61%) IVPUSH 05/30/20 18:32 50 ml ONETIME ONE Administration Iopamidol 100 ml 05/30/20 18:31 05/30/20 18:59 Isovue-370 (76%) IVPUSH 05/30/20 18:32 100 ml ONETIME ONE Administration Iopamidol 100 ml 05/30/20 18:56 Isovue-300 (61%) IVPUSH 05/30/20 18:57 ONETIME ONE Iopamidol 100 ml 05/30/20 18:56 Isovue-300 (61%) IVPUSH 05/30/20 18:57 ONETIME ONE Magnesium Citrate 296 ml 05/30/20 20:11 05/30/20 22:05 Citrate Of Magnesia PO 05/30/20 20:12 296 ml ONETIME ONE Administration Metoclopramide HCl 5 mg 05/30/20 17:53 05/30/20 18:06 Reglan IVPUSH 05/30/20 17:54 5 mg ONETIME ONE Administration Metronidazole 500 mg 05/30/20 21:36 05/30/20 22:05 Flagyl PO 05/30/20 21:37 500 mg ONETIME ONE Administration Ondansetron HCl 4 mg 05/30/20 20:00 05/30/20 20:14 Zofran IVPUSH 05/30/20 20:01 4 mg ONETIME ONE Administration Ondansetron HCl 4 mg 05/30/20 21:36 05/30/20 22:05 Zofran Odt PO 05/30/20 21:37 4 mg ONETIME ONE Administration Sodium Chloride 10 ml 05/30/20 16:11 05/30/20 16:13 Saline Flush FLUSH 10 ml ASDIRECTED PRN Administration Keep Vein Open Sodium Chloride 10 ml 05/30/20 18:31 Saline Flush FLUSH 05/30/20 18:32 NOW STA - Re-Assessments/Exams Free Text/Narrative Re-Assessment/Exam: 05/30/20 19:49 Dr. Wang is asked me to assume care of this patient and is now change of shift. Patient presented with diffuse severe abdominal pain with associated nausea vomiting after eating dinner earlier this afternoon.Labs reveal a markedly elevated white count at 21.39 with left shift of 78.1% neutrophils on the auto differential. Hemoglobin is 15.8 with hematocrit of 47.0. Platelet count is 275,000. The slide shows 1+ anisocytosis 1+ teardrop cells and 1+ magy cells all suggestive of splenomegaly. Platelets are adequate with normal morphology. White blood cell count review is no neutrophilia lymphopenia monocytosis and leukocytosis with no reported bands cells. Sodium 141 potassium slightly low at 3.2. Chloride 103 with a bicarb of 23. Anion gap is elevated at 18.2. BUN is 18 with a creatinine of 1.1 and a GFR greater than 60. Glucose is 94 calcium 9.0. Liver function is normal troponin I is less vitaliy n 0.017 C-reactive protein mildly elevated at 2.5. Total protein 7.1 with an albumin fraction of 3.9. Lipase is normal at 226 and his blood alcohol is 0.00. I have added a serum magnesium to his labs as well as serum ketones. Currently the patient is in the CT suite for CT of the abdomen 05/30/20 21:37 and is just about completed his IV antibiotics. Unfortunately he will not be discharged until after the drug stores are close. I am going to arrange for Zofran 4 mg sublingual to be taken home with him as well as a Flagyl 500 mg tablet to be taken at approximately 0600 hrs. tomorrow morning. Departure - Departure Time of Disposition: 22:00 - Discharge Information *PRESCRIPTION DRUG MONITORING PROGRAM REVIEWED*: Not Applicable *COPY OF PRESCRIPTION DRUG MONITORING REPORT IN PATIENT JOVANNY: Not Applicable
[2020-05-30] MEDS ORDERED: Iopamidol 612 MG/ML 100 ML Bottle IVPUSH ONE ×2 (18:56)
[2020-05-30] MEDS ORDERED: metroNIDAZOLE/Normal Saline 500 MG in Premix Bag 1 BAG IV ONE (19:59)
[2020-05-30] MEDS ORDERED: Ondansetron 4 MG/2 ML SDV IVPUSH ONE (20:00)
[2020-05-30] MEDS ORDERED: Sodium Chloride 0.9% 1,000 ML IV SCH (20:00)
[2020-05-30] MEDS ORDERED: Levofloxacin/Dextrose 5%-Water 750 MG in Premix Bag 1 BAG IV ONE (20:02)
[2020-05-30] MEDS ORDERED: Magnesium Citrate Solution 296 ML Bottle PO ONE (20:11)
[2020-05-30] MEDS ORDERED: metroNIDAZOLE 500 MG Tab PO ONE (21:36)
[2020-05-30] MEDS ORDERED: Ondansetron 4 MG Tab.DIS PO ONE (21:36)
--- NOTE | 2020-05-31 10:10 | CR ---
Abdomen and pelvis: AP and crosstable lateral views were obtained of the abdomen. Comparison: Prior abdominal x-ray of 12/30/19. Previous surgery seen within the lumbar spine. Mild joint space narrowing is seen within the right hip. Slight increased stool is noted within the right colon and transverse colon. Bowel gas pattern is otherwise unremarkable. No free air is appreciated. Impression: 1. Findings as noted above. 2. Nothing acute is seen. Diagnostic code #2
--- NOTE | 2020-05-31 10:14 | CT ---
CT abdomen and pelvis Multiple axial sections were obtained above the dome of the diaphragm inferiorly through the pubic symphysis. Intravenous contrast was utilized. No oral contrast given. Delayed images were also obtained through the abdomen and pelvis. Reconstructed coronal and sagittal images were obtained. Comparison: No prior CT exam, previous abdominal x-ray performed earlier on the same day. Findings: Visualized lung bases show nothing acute. Liver and spleen shows no focal parenchymal abnormality. Very minimal calcifications are seen within the liver compatible with previous granulomatous change. Gallbladder contains no calcified gallstones. Adrenal glands show no nodule. Kidneys show symmetric contrast enhancement. Delayed images shows a minimal low density lesion within the mid to upper right kidney measuring approximately 3-4 mm. This finding is most likely due to a minimal cyst. Delayed images shows contrast within the ureters and within the bladder. Aorta shows diffuse atherosclerotic change which continues into the iliac vessels. No retroperitoneal adenopathy or mesenteric abnormalities are seen. No pelvic mass or adenopathy is seen. Pelvis shows there is diffuse bowel wall thickening within the bladder. There is scattered areas of bowel wall thickening within the colon which most likely represent under distention. Slight increased stool is seen within the colon. Appendix is seen and is normal in size. Bone window settings shows previous surgery at L3-4 through L5-S1. Mild scattered degenerative change is noted within the spine. No acute osseous finding is appreciated. Impression: 1. Bowel wall thickening scattered within the colon most likely related to under distention rather than colitis. 2. Bowel wall thickening within the bladder. This may relate to bladder outlet obstruction but please exclude any symptoms of cystitis. 3. Other findings as noted above which are nonacute. Diagnostic code #2 I mostly agree with preliminary report from [facility], finalized on 05/30/20, 8:43 PM CERTIFIED MEDICAL TECHNICIAN ASSISTANT
== END 2020-05-30 22:40 | disposition home or self-care (01) ==
LOC: JD.ED 15:52
DX: K52.9 Noninfective gastroenteritis and colitis, unspecified (principal); E78.00 Pure hypercholesterolemia, unspecified; F17.210 Nicotine dependence, cigarettes, uncomplicated; Z79.899 Other long term (current) drug therapy; Z20.828 Contact with and (suspected) exposure to other viral communicable diseases
CPT/HCPCS: 36415; 74019; 74177; 80053; 80307; 81001; 81003; 82009; 83690; 83735; 84484; 85025; 86140; 87635; 96365; 96366; 96368; 96375; 99285; A9270; J1956; J2405; J2765; J3490; J7030; Q9967; 99284; U0002

== ENCOUNTER 2020-08-08 07:47 | Emergency (ER) | payer BC ==
[2020-08-08 08:00] VITALS: BP 141/84; PULSE 73
[2020-08-08] MEDS ORDERED: Sodium Chloride 0.9% 10 ML Syringe FLUSH PRN (08:31)
[2020-08-08] MEDS ORDERED: Ondansetron 4 MG/2 ML SDV IVPUSH ONE (08:31)
[2020-08-08] MEDS ORDERED: Sodium Chloride 0.9% 1,000 ML IV SCH (08:45)
--- NOTE | 2020-08-08 09:38 | EDM.PDOC ---
ED HPI GENERAL MEDICAL PROBLEM - General Chief Complaint: Gastrointestinal Problem Stated Complaint: VOMITING AND SWEATING Time Seen by Provider: 08/08/20 08:24 Source of Information: Reports: Patient, RN Notes Reviewed - History of Present Illness INITIAL COMMENTS - FREE TEXT/NARRATIVE: 55 yr old male with onset of chills, nausea, vomiting, mild abd pain and cramping just a couple of hrs ago. Cha[place]in fine yesterday. No diarrhea. Similar episode about 2 1/2 months ago. He did feel weak, dizzy light headed when this first started, No chest pain or difficulty breathing. - Related Data Allergies Allergy/AdvReac Type Severity Reaction Status Date / Time No Known Allergies Allergy Verified 08/08/20 08:07 Home Meds: Home Meds oxyCODONE ER [OxyCONTIN] 20 mg PO Q4HR PRN 01/19/15 [History] diazePAM [Valium] 10 mg PO BID PRN 03/06/19 [History] atorvaSTATin [Lipitor] 10 mg PO DAILY 07/03/19 [History] Morphine [MS Contin] 1 tab PO ASDIRECTED PRN 08/08/20 [History] Ondansetron [Zofran ODT] 4 mg PO Q6H PRN #14 tab.dis 08/08/20 [Rx] Past Medical History Cardiovascular History: Reports: High Cholesterol Respiratory History: Reports: Sleep Apnea Gastrointestinal History: Reports: Chronic Constipation Other Gastrointestinal History: colitis Musculoskeletal History: Reports: Back Pain, Chronic Oncologic (Cancer) History: Reports: Squamous Cell Carcinoma Other Dermatologic History: "skin cancer of nose and above the left eye" - Past Surgical History Other Neurological Surgeries/Procedures: "multiple back surgeries". reports last surgery was last spring with anterior-posterior fusion. previous surgery for removal of hardware for infection. 10 failed back surgeries, 2 failed neck surgeries Social & Family History - Family History Family Medical History: No Pertinent Family History - Tobacco Use Tobacco Use Status *Q: Current Every Day Tobacco User Years of Tobacco use: 10 Packs/Tins Daily: 0.5 - Caffeine Use Caffeine Use: Reports: Coffee - Recreational Drug Use Recreational Drug Use: No ED ROS GENERAL - Review of Systems Review Of Systems: See Below Constitutional: Reports: Chills. Denies: Fever HEENT: Reports: No Symptoms Respiratory: Denies: Shortness of Breath Cardiovascular: Denies: Chest Pain GI/Abdominal: Reports: Nausea, Vomiting. Denies: Abdominal Pain (mild, gone), Diarrhea, Hematochezia, Melena Musculoskeletal: Reports: No Symptoms Skin: Reports: No Symptoms Neurological: Reports: Dizziness ED EXAM, GI/ABD - Physical Exam Exam: See Below General Appearance: Alert, Mild Distress Throat/Mouth: Normal Inspection Head: Atraumatic Neck: Supple Respiratory/Chest: No Respiratory Distress, Lungs Clear, Normal Breath Sounds GI/Abdominal Exam: Soft, Non-Tender. No: Guarding, Rebound Back Exam: No: CVA Tenderness (L), CVA Tenderness (R) Extremities: Normal Inspection, Normal Range of Motion Skin Exam: Warm, Dry, Normal Color Course - Vital Signs Last Recorded V/S: Last Vital Signs Temp 97.4 F 08/08/20 07:56 Pulse 73 08/08/20 07:56 Resp 16 08/08/20 07:56 BP 141/84 H 08/08/20 07:56 Pulse Ox 100 08/08/20 07:56 - Orders/Labs/Meds Labs: Laboratory Tests 08/08/20 08/08/20 08/08/20 Range/Units 08:35 08:35 08:35 WBC 10.99 H (4.23-9.07) K/mm3 RBC 5.25 (4.63-6.08) M/mm3 Hgb 16.5 (13.7-17.5) gm/dl Hct 50.2 (40.1-51.0) % MCV 95.6 H (79.0-92.2) fl MCH 31.4 (25.7-32.2) pg MCHC 32.9 (32.2-35.5) g/dl RDW Std Deviation 46.1 H (35.1-43.9) fL Plt Count 291 (163-337) K/mm3 MPV 9.6 (9.4-12.3) fl Neut % (Auto) 71.1 H (34.0-67.9) % Lymph % (Auto) 14.6 L (21.8-53.1) % [place] % (Auto) 11.6 (5.3-12.2) % Eos % (Auto) 2.2 (0.8-7.0) Baso % (Auto) 0.3 (0.1-1.2) % Neut # (Auto) 7.83 H (1.78-5.38) K/mm3 Lymph # (Auto) 1.60 (1.32-3.57) K/mm3 [place] # (Auto) 1.27 H (0.30-0.82) K/mm3 Eos # (Auto) 0.24 (0.04-0.54) K/mm3 Baso # (Auto) 0.03 (0.01-0.08) K/mm3 Manual Slide Review Normal smear Sodium 142 (136-145) mEq/L Potassium 3.9 (3.5-5.1) mEq/L Chloride 103 (98-107) mEq/L Carbon Dioxide 27 (21-32) mEq/L Anion Gap 15.9 H (5-15) BUN 11 (7-18) mg/dL Creatinine 1.0 (0.7-1.3) mg/dL Est Cr Clr Drug Dosing 105.36 mL/min Estimated GFR (MDRD) > 60 (>60) mL/min BUN/Creatinine Ratio 11.0 L (14-18) Glucose 94 (74-106) mg/dL Calcium 9.8 (8.5-10.1) mg/dL Total Bilirubin 0.5 (0.2-1.0) mg/dL AST 20 (15-37) U/L ALT 18 (16-63) U/L Alkaline Phosphatase 107 (46-116) U/L C-Reactive Protein 2.3 H* (<1.0) mg/dL Total Protein 7.7 (6.4-8.2) g/dl Albumin 3.9 (3.4-5.0) g/dl Globulin 3.8 gm/dL Albumin/Globulin Ratio 1.0 (1-2) Lipase 80 (73-393) U/L Urine Color (Yellow) Urine Appearance (Clear) Urine pH (5.0-8.0) Ur Specific [place] (1.005-1.030) Urine Protein (Negative) Urine Glucose (UA) (Negative) Urine Ketones (Negative) Urine Occult Blood (Negative) Urine Nitrite (Negative) Urine Bilirubin (Negative) Urine Urobilinogen (0.2-1.0) Ur Leukocyte Esterase (Negative) Urine RBC (0-5) /hpf Urine WBC (0-5) /hpf Ur Squamous Epith Cells (0-5) /hpf Urine Bacteria (FEW) /hpf Urine Mucus (FEW) /hpf 08/08/20 Range/Units 09:18 WBC (4.23-9.07) K/mm3 RBC (4.63-6.08) M/mm3 Hgb (13.7-17.5) gm/dl Hct (40.1-51.0) % MCV (79.0-92.2) fl MCH (25.7-32.2) pg MCHC (32.2-35.5) g/dl RDW Std Deviation (35.1-43.9) fL Plt Count (163-337) K/mm3 MPV (9.4-12.3) fl Neut % (Auto) (34.0-67.9) % Lymph % (Auto) (21.8-53.1) % [place] % (Auto) (5.3-12.2) % Eos % (Auto) (0.8-7.0) Baso % (Auto) (0.1-1.2) % Neut # (Auto) (1.78-5.38) K/mm3 Lymph # (Auto) (1.32-3.57) K/mm3 [place] # (Auto) (0.30-0.82) K/mm3 Eos # (Auto) (0.04-0.54) K/mm3 Baso # (Auto) (0.01-0.08) K/mm3 Manual Slide Review Sodium (136-145) mEq/L Potassium (3.5-5.1) mEq/L Chloride (98-107) mEq/L Carbon Dioxide (21-32) mEq/L Anion Gap (5-15) BUN (7-18) mg/dL Creatinine (0.7-1.3) mg/dL Est Cr Clr Drug Dosing mL/min Estimated GFR (MDRD) (>60) mL/min BUN/Creatinine Ratio (14-18) Glucose (74-106) mg/dL Calcium (8.5-10.1) mg/dL Total Bilirubin (0.2-1.0) mg/dL AST (15-37) U/L ALT (16-63) U/L Alkaline Phosphatase (46-116) U/L C-Reactive Protein (<1.0) mg/dL Total Protein (6.4-8.2) g/dl Albumin (3.4-5.0) g/dl Globulin gm/dL Albumin/Globulin Ratio (1-2) Lipase (73-393) U/L Urine Color Dark yellow (Yellow) Urine Appearance Clear (Clear) Urine pH 8.0 (5.0-8.0) Ur Specific [place] 1.025 (1.005-1.030) Urine Protein 1+ H (Negative) Urine Glucose (UA) Negative (Negative) Urine Ketones 3+ H (Negative) Urine Occult Blood Negative (Negative) Urine Nitrite Negative (Negative) Urine Bilirubin Negative (Negative) Urine Urobilinogen 1.0 (0.2-1.0) Ur Leukocyte Esterase Negative (Negative) Urine RBC 0-5 (0-5) /hpf Urine WBC 0-5 (0-5) /hpf Ur Squamous Epith Cells 0-5 (0-5) /hpf Urine Bacteria Few (FEW) /hpf Urine Mucus Few (FEW) /hpf Meds: Medications Discontinued Medications Generic Name Dose Route Start Last Admin Trade Name Freq PRN Reason Stop Dose Admin Sodium Chloride 1,000 mls @ 999 mls/hr 08/08/20 08:45 08/08/20 08:37 Normal Saline IV 999 mls/hr ONETIME ELSI Administration Ondansetron HCl 4 mg 08/08/20 08:31 08/08/20 08:36 Zofran IVPUSH 08/08/20 08:32 4 mg ONETIME ONE Administration Sodium Chloride 10 ml 08/08/20 08:31 08/08/20 08:38 Saline Flush FLUSH 10 ml ASDIRECTED PRN Administration Keep Vein Open - Re-Assessments/Exams Free Text/Narrative Re-Assessment/Exam: 08/08/20 10:18 Feeling much better after 1 liter NS, zofran IV. No abd pain at this time. Nausea is gone. Labs relatively normal. Feels up to going home. Departure - Departure Time of Disposition: 10:19 Disposition: Home, Self-Care 01 Condition: Fair Clinical Impression: Abdominal pain, Near syncope Vomiting Qualifiers: Vomiting type: unspecified Vomiting Intractability: non-intractable Nausea presence: with nausea Qualified Code(s): R11.2 - Nausea with vomiting, unspeci fied - Discharge Information Prescriptions: Ondansetron [Zofran ODT] 4 mg PO Q6H PRN #14 tab.dis PRN Reason: Nausea/Vomiting Instructions: Near-Syncope, Abdominal Pain, Adult, Vomiting, Adult Referrals: Danitza Alvarez TERMINAL PRESS OPERATOR [Primary Care Provider] - Forms: ED Department Discharge, ED Return to Work/School Form Additional Instructions: Clear liquids until later today, than careful bland diet as tolerated. Zofran if needed for further nausea or vomiting. Prescription has been sent to the medicine shop. Probiotic twice daily. Follow up clinic as needed. Return to ED as needed if symptoms worsening in any way. Sepsis Event Note (ED) - Evaluation Sepsis Screening Result: No Definite Risk
== END 2020-08-08 10:41 | disposition home or self-care (01) ==
LOC: JD.ED 07:47
DX: R11.2 Nausea with vomiting, unspecified (principal); R55 Syncope and collapse; R10.9 Unspecified abdominal pain; E78.00 Pure hypercholesterolemia, unspecified; Z72.0 Tobacco use; Z79.899 Other long term (current) drug therapy
CPT/HCPCS: 36415; 80053; 81001; 83690; 85025; 86140; 96374; 99284; J2405; J7030

== ENCOUNTER 2020-08-28 09:14 | Day surgery (SDC) | payer BC ==
--- NOTE | 2020-08-28 08:16 | PCM.PREANE ---
Preanesthetic Assessment - Procedure Proposed Procedure: Laparoscopic Cholecystectomy - Anesthesia/Transfusion/Family Hx Anesthesia History: Prior Anesthesia Without Reaction Family History of Anesthesia Reaction: No Transfusion History: No Prior Transfusion(s) Intubation History: Unknown - Review of Systems General: No Symptoms, Weakness, Fatigue Pulmonary: No Symptoms (smoker: 1 cigar per day for 45 years ETOH:none for four years JAYCOB: CPAP Asthma/no treatment for 10 years.), Cough (occasional smoker's cough) Cardiovascular: No Symptoms (Elevated cholesterol), Palpitations (anxiety induced.), Dyspnea on Exertion, Lightheadedness (positonal changes) Gastrointestinal: No Symptoms (Chronic Pain Syndrome: on medical marijuana/ on chronic opiod pain management.), Constipation, Decreased Appetite, Difficulty Swallowing (since neck surgery; patient states throat feels paralyzed at times), Nausea (on occasion) Neurological: No Symptoms (Chronic back pain: history of spine surgery/Generalized pain noted: 10/28), Tingling (All four extremities paresthes ia noted. Burning sensation noted in feet.) Other: Reports: Easy Bruising, Sinus Problem (Seasonal allergies), Neck Pain (chronic cervical pain: cervical fusion 2008) - Physical Assessment NPO Status Date: 08/27/20 NPO Status Time: 17:00 Vital Signs: HR:66 Sat:94% Temp:97.7 B/P:105/66 Resp:16 Height: 1.98 m Weight: 96 kg ASA Class: 3 Mental Status: Alert & Oriented x3 Airway Class: Mallampati = 2 Dentition: Reports: Normal Dentition, Missing Tooth/Teeth, Caries Thyro-Mental Finger Breadths: 3 Mouth Opening Finger Breadths: 3 ROM/Head Extension: Limited/Partial (Fusion noted, limited extension noted.) Lungs: Clear to Auscultation, Normal Respiratory Effort Cardiovascular: Regular Rate, Regular Rhythm, No Murmurs - Lab Values: All labs reviewed and noted and within acceptable ranges to proceed with scheduled procedure. - Imaging/EKG Impressions: EKG: SR rate=88 - Allergies Allergies/Adverse Reactions: Allergies Allergy/AdvReac Type Severity Reaction Status Date / Time duloxetine [From Cymbalta] Allergy Drowsiness Verified 08/27/20 13:13 - Anesthesia Plan Pre-Op Medication Ordered: None - Acknowledgements Anesthesia Type Planned: General Anesthesia Pt an Appropriate Candidate for the Planned Anesthesia: Yes Alternatives and Risks of Anesthesia Discussed w Pt/Guardian: Yes Pt/Guardian Understands and Agrees with Anesthesia Plan: Yes PreAnesthesia Questionnaire HEENT History: Reports: Allergic Rhinitis, Sinusitis Cardiovascular History: Reports: High Cholesterol Respiratory History: Reports: Bronchitis, Recurrent, Sleep Apnea Gastrointestinal History: Reports: Chronic Constipation Other Gastrointestinal History: colitis Genitourinary History: Reports: None ROAD EQUIPMENT OPERATOR History: Reports: None Musculoskeletal History: Reports: Arthritis, Back Pain, Chronic, Other (See Below) Other Musculoskeletal History: tennis elbow, back pain, cervical pain, back muscle spasm, carpal tunnel sydrome Neurological History: Reports: None Psychiatric History: Reports: Other (See Below) Other Psychiatric History: opiod dependence, chronic pain, insomnia Endocrine/Metabolic History: Reports: Vitamin D Deficiency Hematologic History: Reports: None Immunologic History: Reports: None Oncologic (Cancer) History: Reports: Squamous Cell Carcinoma Other Dermatologic History: "skin cancer of nose and above the left eye" - Infectious Disease History Infectious Disease History: Reports: None - Past Surgical History Head Surgeries/Procedures: Reports: None HEENT Surgical History: Reports: None Cardiovascular Surgical History: Reports: None Respiratory Surgical History: Reports: None GI Surgical History: Reports: Colonoscopy Female Surgical History: Reports: None Male Surgical History: Reports: None Endocrine Surgical History: Reports: None Neurological Surgical History: Reports: Spinal Fusion Other Neurological Surgeries/Procedures: "multiple back surgeries". reports last surgery was last spring with anterior-posterior fusion. previous surgery for removal of hardware for infection. 10 failed back surgeries, 2 failed neck surgeries Musculoskeletal Surgical History: Reports: Shoulder Surgery Oncologic Surgical History: Reports: None Dermatological Surgical History: Reports: None - SUBSTANCE USE Tobacco Use Status *Q: Current Every Day Tobacco User Tobacco Use Within Last Twelve Months: Cigars Recreational Drug Use History: No - HOME MEDS Home Medications: Home Meds oxyCODONE ER [OxyCONTIN] 20 mg PO Q4HR PRN 01/19/15 [History] diazePAM [Valium] 10 mg PO BID PRN 03/06/19 [History] atorvaSTATin [Lipitor] 10 mg PO DAILY 07/03/19 [History] Morphine [MS Contin] 60 tab PO BID 08/08/20 [History] Ondansetron [Zofran ODT] 4 mg PO Q6H PRN #14 tab.dis 08/08/20 [Rx] - CURRENT (IN HOUSE) MEDS Current Meds: Current Medications Lactated Ringer's (Ringers, Lactated) 1,000 mls @ 125 mls/hr IV ASDIRECTED ELSI Stop: 08/28/20 23:00 Lidocaine/Sodium Bicarbonate (Lidocaine 1%/Sod Bicarbonate In Ns 8.4% 1 Ml Syringe) 0.25 ml IDERM ONETIME PRN PRN Reason: Prior to IV Start Stop: 08/28/20 18:00 Sodium Chloride (Sodium Chloride 0.9% 10 Ml Syringe) 10 ml FLUSH ASDIRECTED PRN PRN Reason: Keep Vein Open Stop: 08/28/20 18:00
[~2020-08-28 09:14] MED LIST: Albuterol 0.083% 2.5 MG/3 ML Neb Soln NEB ONE; Lactated Ringers 1,000 ML IV SCH; Lactated Ringers 1,000 ML ONE; Lidocaine 1% 4 ML ONE; Lidocaine 1%/Sod Bicarbonate in NS 8.4% 1 ML Syringe IDERM PRN; Midazolam 1 MG/ML 2 ML SDV ONE; Ondansetron 4 MG/2 ML SDV ONE; Propofol 200 MG/20 ML SDV ONE; Rocuronium 50 MG/5 ML Vial ONE; Sodium Chloride 0.9% 10 ML Syringe FLUSH PRN; fentaNYL 250 MCG/5 ML SDV ONE
[2020-08-28] MEDS ORDERED: Bupivacaine 0.5%/EPINEPHrine 1:200,000 50 ML MDV ONE (10:01)
[2020-08-28] MEDS ORDERED: ceFAZolin 1 GM Vial ONE ×2 (11:02)
[2020-08-28] MEDS ORDERED: Ketamine 500 mg/10 ML MDV ONE (11:31)
[2020-08-28] MEDS ORDERED: HYDROmorphone 0.5 MG/0.5 ML Syringe ONE ×2 (11:31→11:56)
[2020-08-28] MEDS ORDERED: Dexamethasone 4 MG/ML 5 ML MDV ONE (11:43)
[2020-08-28] MEDS ORDERED: Ketorolac 15 MG/ML SDV ONE (12:15)
[2020-08-28] MEDS ORDERED: fentaNYL 100 MCG/2 ML SDV IVPUSH PRN (12:43)
[2020-08-28] MEDS ORDERED: Ondansetron 4 MG/2 ML SDV IVPUSH PRN (12:43)
--- NOTE | 2020-08-28 12:45 | PCM.POSTAN ---
POST ANESTHESIA ASSESSMENT - MENTAL STATUS Mental Status: Other (Drowsy) - VITAL SIGNS Vital Signs: Last Vital Signs Temp 36.5 C 08/28/20 09:00 Pulse 66 08/28/20 09:00 Resp 16 08/28/20 09:00 BP 105/66 08/28/20 09:00 Pulse Ox 94 L 08/28/20 09:00 - RESPIRATORY Respiratory Status: Respiratory Rate WNL, Airway Patent, O2 Saturation Stable, Supplemental Oxygen - CARDIOVASCULAR CV Status: Pulse Rate WNL, Blood Pressure Stable - GASTROINTESTINAL GI Status: No Symptoms - PAIN Pain Score: 10 (Shoulder/Back) - POST OP HYDRATION Hydration Status: Adequate & Stable
[2020-08-28] MEDS: HYDROmorphone 0.5 MG/0.5 ML Syringe IVPUSH PRN ×4 (12:53→13:47)
--- NOTE | 2020-08-28 13:01 | OR ---
DATE OF OPERATION: 08/28/2020 SURGEON: Aliza Cai MD PREOPERATIVE DIAGNOSIS: Biliary dyskinesia. POSTOPERATIVE DIAGNOSIS: Biliary dyskinesia. OPERATION PERFORMED: Laparoscopic cholecystectomy. ESTIMATED BLOOD LOSS: 5 mL. ANESTHESIA: General endotracheal. COMPLICATIONS: None. INDICATION AND CONSENT: Mr. Babb is a 55-year-old male who has been having bloating, nausea, vomiting, and mild abdominal pain in the right upper quadrant. The patient has also been having weight loss due to low appetite. This has been going on for some time. Workup including colonoscopy was negative. The patient was examined with an ultrasound of the gallbladder. No stones. HIDA scan was performed and found to have severe biliary dyskinesia with ejection fraction of 0%. The patient was sent to my clinic. I evaluated him and recommended cholecystectomy due to this problem. We discussed the risks, benefits, and alternatives, and indication for procedure, as well as postop care and informed consent was obtained. DESCRIPTION OF PROCEDURE: The patient was taken to the operating room, placed in supine position, padded appropriately. General endotracheal anesthesia was induced. Time-out was performed. The patient's abdomen was prepped and draped in the usual sterile fashion. We began by injecting local anesthetic consisting of 1% lidocaine in the supraumbilical position. Then, incision was made at this site. Umbilical stalk was elevated with Annalisa clamps and a Veress needle was introduced, insufflating the abdomen to 15 mmHg with CO2. Then, a 12 mm trocar was placed at this site under direct visualization of laparoscope. Upon entry into the abdomen, we placed the laparoscope. We inspected the abdomen. We did not see any signs of injury due to Veress or trocar insertion. We inspected the abdomen. The liver appeared to be steatotic. The rest of the bowel around the abdomen appeared normal. We placed three 5 mm trocars, 1 in the subxiphoid area and 2 in the right subcostal and focused on the right upper quadrant where the gallbladder was. Gallbladder was distended, therefore it was drained with a laparoscopic needle removing 50 mL of dark green bile. Once this was done, the gallbladder was elevated cranially and then we dissected the triangle of Calot skeletonizing both the cystic duct and cystic artery and obtaining the critical view of safety. Then, once this was obtained, we clipped both the cystic duct and cystic artery with 3 clips and transected it with laparoscopic machelle so that 2 clips remained in situ. This was done. The gallbladder was taken off the gallbladder fossa with cautery and placed in the EndoCatch bag. We inspected the dissection area and was hemostatic. Then, the gallbladder was removed through the supraumbilical incision and then supraumbilical incision was closed at the fascial level with 0 Vicryl stitches using Raciel-Jessica device. Then, the abdomen was desufflated. The rest of the trocars were removed and the skin was closed with 4-0 Monocryl at all 4 areas. The patient was awoken from anesthesia, taken to the recovery room. The patient will be allowed to return home and follow up with me in 2 weeks. ANNIE /[id number] NAV
[2020-08-28] MEDS ORDERED: HYDROmorphone 1 MG/ML Syringe IVPUSH ONE (13:20)
[2020-08-28] MEDS ORDERED: Midazolam 1 MG/ML 2 ML SDV IVPUSH ONE (13:53)
[2020-08-28] MEDS ORDERED: Midazolam 1 MG/ML 2 ML SDV IV ONE (14:15)
--- NOTE | 2020-08-28 15:12 | PCM48HPAN ---
Post Anesthesia Note - EVALUATION WITHIN 48HRS OF ANESTHETIC Vital Signs in Normal Range: Yes Patient Participated in Evaluation: Yes Respiratory Function Stable: Yes Airway Patent: Yes Cardiovascular Function Stable: Yes Hydration Status Stable: Yes Pain Control Satisfactory: Yes Nausea and Vomiting Control Satisfactory: Yes Mental Status Recovered: Yes Vital Signs: Last Vital Signs Temp 36.6 C 08/28/20 13:55 Pulse 59 L 08/28/20 13:55 Resp 10 L 08/28/20 13:55 BP 127/77 08/28/20 13:55 Pulse Ox 100 08/28/20 13:55 - COMMENTS/OBSERVATIONS Free Text/Narrative:: Patient initially going to extended floor recovery. The idea of patient going outside to have a medical marijuana cigarette was suggested. No policy regarding this treatment plan noted, therefore patient requests to go home. Patient believes that when home he can resume his regular chronic pain management in hopes that it will provide him with sufficient pain control. Patient currently ambulated up to bathroom with steady uneventful gait noted. Vital signs remain stable. Patient states pain now is 5-6/10. Patient is getting ready for discharge. Thank you, Zabrina BAILEY
[2020-08-28 15:13] VITALS: BP 122/74; PULSE 68
== END 2020-08-28 15:00 | disposition home or self-care (01) ==
LOC: JD.SDS 09:14
PROVIDERS: ATTEND Surgery
DX: K81.1 Chronic cholecystitis (principal); K82.8 Other specified diseases of gallbladder; G89.29 Other chronic pain; F17.210 Nicotine dependence, cigarettes, uncomplicated; E78.00 Pure hypercholesterolemia, unspecified; G47.30 Sleep apnea, unspecified; Z98.890 Other specified postprocedural states; Z79.899 Other long term (current) drug therapy; Z88.8 Allergy status to other drugs, medicaments and biological substances
CPT/HCPCS: 47562; 94640; J0690; J1100; J1170; J1885; J2250; J2405; J2704; J2710; J3010; J3490; J7120; 00790

== ENCOUNTER 2021-12-31 06:29 | Day surgery (SDC) | payer BC ==
[~2021-12-31 06:29] MED LIST changes: -Albuterol 0.083% 2.5 MG/3 ML Neb Soln NEB ONE; +Bupivacaine 0.25% 10 ML SDV ONE; -Lactated Ringers 1,000 ML ONE; +Lidocaine 1% 30 ML SDV ONE; -Lidocaine 1% 4 ML ONE; -Midazolam 1 MG/ML 2 ML SDV ONE; -Ondansetron 4 MG/2 ML SDV ONE; -Propofol 200 MG/20 ML SDV ONE; -Rocuronium 50 MG/5 ML Vial ONE; +Sodium Chloride 0.9% 10 ML Syringe FLUSH SCH; -fentaNYL 250 MCG/5 ML SDV ONE
[2021-12-31 07:40] VITALS: BP 124/86; PULSE 60
== END 2021-12-31 07:35 | disposition home or self-care (01) ==
LOC: JD.SDS 06:29
PROVIDERS: ATTEND Orthopaedic Surgery
DX: G56.12 Other lesions of median nerve, left upper limb (principal); F17.210 Nicotine dependence, cigarettes, uncomplicated; G56.03 Carpal tunnel syndrome, bilateral upper limbs; E78.00 Pure hypercholesterolemia, unspecified; F51.02 Adjustment insomnia; Z79.899 Other long term (current) drug therapy; Z90.49 Acquired absence of other specified parts of digestive tract; Z98.890 Other specified postprocedural states
CPT/HCPCS: 64721; J3490

== ENCOUNTER 2022-02-12 09:30 | Day surgery (SDC) | payer BC ==
[~2022-02-12 09:30] MED LIST changes: -Lidocaine 1% 30 ML SDV ONE
[2022-02-12] MEDS ORDERED: Albuterol 0.083% 2.5 MG/3 ML Neb Soln NEB ONE (10:01)
[2022-02-12 10:21] VITALS: PULSE 64
[2022-02-12] MEDS ORDERED: Propofol 200 MG/20 ML SDV ONE (10:48)
[2022-02-12] MEDS ORDERED: Lidocaine 1% 4 ML ONE (10:48)
[2022-02-12] MEDS ORDERED: Midazolam 1 MG/ML 2 ML SDV ONE (10:49)
[2022-02-12] MEDS ORDERED: fentaNYL 100 MCG/2 ML SDV ONE ×3 (10:49→11:52)
[2022-02-12 11:08] VITALS: BP 114/75
[2022-02-12] MEDS ORDERED: ceFAZolin 2 GM Vial ONE (11:27)
[2022-02-12] MEDS ORDERED: Ketorolac 30 MG/ML SDV ONE (11:36)
[2022-02-12] MEDS ORDERED: Ondansetron 4 MG/2 ML SDV ONE (11:36)
[2022-02-12] MEDS ORDERED: Lactated Ringers 1,000 ML ONE (11:54)
[2022-02-12] MEDS ORDERED: Ondansetron 4 MG/2 ML SDV IVPUSH PRN (12:00)
[2022-02-12] MEDS ORDERED: fentaNYL 100 MCG/2 ML SDV IVPUSH PRN (12:00)
[2022-02-12] MEDS ORDERED: diphenhydrAMINE 50 MG/ML SDV IVPUSH PRN (12:00)
== END 2022-02-12 13:14 | disposition home or self-care (01) ==
LOC: JD.SDS 09:30
PROVIDERS: ATTEND Orthopaedic Surgery
DX: G56.22 Lesion of ulnar nerve, left upper limb (principal); F17.290 Nicotine dependence, other tobacco product, uncomplicated; M62.830 Muscle spasm of back; M54.50 Low back pain, unspecified; G89.29 Other chronic pain; G47.00 Insomnia, unspecified; Z98.890 Other specified postprocedural states; Z90.49 Acquired absence of other specified parts of digestive tract; Z79.02 Long term (current) use of antithrombotics/antiplatelets; Z79.899 Other long term (current) drug therapy; Z88.8 Allergy status to other drugs, medicaments and biological substances; Z88.5 Allergy status to narcotic agent
CPT/HCPCS: 64718; J0690; J1885; J2250; J2405; J2704; J3010; J3490; J7120; 01710